=== PATIENT | female | born 1960 | race Caucasian/White ===

== ENCOUNTER → 2017-04-21 | Outpatient (CLI) | payer BC ==
[~2017-04-21] MED LIST: CLR10 PO; HYDR12.55 PO; LEVO75TA5 PO
--- NOTE | 2017-04-21 10:51 | DIAGNOSTIC IMAGING REPORT ---
(CHEST) THORAX WITHOUT CT DOSE: 388.72 mGy.cm HISTORY: Aneurysm THORACIC AORTIC ANEURISM TECHNIQUE: Multiaxial CT images of the chest were performed without contrast. A dose lowering technique was utilized adhering to the principles of ALARA. COMPARISON: [facility] CT chest 02/22/2016 FINDINGS: Lungs remain clear. Mild/moderate distention of the aortic root at 4 cm. This is unchanged from the prior study. Internal architecture of the thoracic aorta is not possible as this is performed at an unenhanced fashion. No significant mediastinal or hilar adenopathy. IMPRESSION: 1. Stable moderate aneurysmal dilatation a sending thoracic aorta. 2. No change from the prior study of 04/12/2016 and 02/12/2016. 3. The lungs are clear. The above report was generated using voice recognition software. It may contain grammatical, syntax or spelling errors. Electronically signed by: Jaya Harris M.D. 04/21/2017 10:50 AM Dictated Date/Time: 04/21/2017 10:45 AM
== END | disposition home or self-care (01) ==
LOC: C.CTS 10:27
PROVIDERS: ATTEND Surgery Vascular Surgery
DX: I71.2 Thoracic aortic aneurysm, without rupture (principal)

== ENCOUNTER → 2017-07-29 | Outpatient (CLI) | payer BC | END | disposition home or self-care (01) | LOC: C.LABMFLN 11:15 | PROVIDERS: ATTEND Family Medicine | DX: R30.0 Dysuria (principal) ==